=== PATIENT | female | born 1995 | race African-American/Black ===

== ENCOUNTER 2017-05-21 12:41 | Emergency (ER) | payer OTHER, SELFPAY ==
[2017-05-21] MEDS ORDERED: HYDROcodone/Acetaminophen 10/325 mg Tablet ONE (13:45)
== END 2017-05-21 14:54 | disposition home or self-care (01) ==
LOC: ERS 12:41
DX: L02.214 Cutaneous abscess of groin (principal); J45.909 Unspecified asthma, uncomplicated
CPT/HCPCS: 10060

== ENCOUNTER 2017-07-29 20:36 | Emergency (ER) | payer SELFPAY ==
[2017-07-29 21:00] LABS: Pregnancy Test - Urine (BHCG) POSITIVE (Negative); Pregu Control Background? CLEAR/WHITE (CLR/WHITE); Pregu Control Bar Appear? YES (CONTROL BAR)
--- NOTE | 2017-07-30 00:05 | ULT ---
OB ULTRASOUND: Date: 07/29/17 HISTORY: Nausea and vomiting. Bleeding 3 days ago. Unknown dates. FINDINGS: There is a single intrauterine gestation in cephalic presentation. Cardiac Doppler demonstrates heart tones with a heart rate of 150 beats/minute. The placenta is located posteriorly. Lower uterine segment is note well visualized, but the leading edge of the placenta does not appear to exte nd into the lower uterine segment to suggest placenta previa or low-lying placenta. Subjectively, the re is a normal amount of amniotic fluid. The cervical length measures 3.7 cm based on endovaginal imaging. measurements: BPD: 5.7 cm, 23 weeks/3 days HC: 19.75 cm, 22 weeks AC: 18.21 cm, 23 weeks FL: 3.86 cm, 22 weeks/3 days The estimated gestational age by ultrasound is 22 weeks/5 days with an VANESA on 11/27/17. Gestational a ge by the last menstrual period is not provided. The estimated weight by ultrasound is 527 gm (1 lb, 3 oz). The visualized portions of the cerebellum, visualized portions of the spine, four chamber heart , stomach, bilateral kidneys, and decompressed urinary bladder demonstrate a normal CT appearance. Th e cord insertion has a normal sonographic appearance as well. A three vessel cord is not delineated, but there is flow on either side of the urinary bladder suggesting a three vessel cord. No definite f etal anomalies are visualized on this exam. IMPRESSION: 1. Single intrauterine gestation in cephalic presentation with heart tones documented. Estimat ed gestational age by ultrasound is 22 weeks/5 days with an VANESA on 11/27/17. 2. Estimated weight by ultrasound is 527 gm (1 lb, 3 oz). 3. No retroplacental hemorrhage is identified on this exam. Subjectively, there is a normal amount o f amniotic fluid. POS: [facility]
== END 2017-07-30 00:10 | disposition home or self-care (01) ==
LOC: ERS 20:36
DX: O46.92 Antepartum hemorrhage, unspecified, second trimester (principal); O99.512 Diseases of the respiratory system complicating pregnancy, second trimester; J45.909 Unspecified asthma, uncomplicated; Z3A.22 22 weeks gestation of pregnancy
CPT/HCPCS: 36415; 76805; 81025; 84702; 86900; 86901

== ENCOUNTER 2017-10-03 12:18 | Emergency (ER) | payer OTHER, SELFPAY | END 2017-10-03 15:20 | disposition short-term general hospital (02) | LOC: SCSER 12:18 | DX: O99.89 Other specified diseases and conditions complicating pregnancy, childbirth and the puerperium (principal); R10.30 Lower abdominal pain, unspecified; O99.513 Diseases of the respiratory system complicating pregnancy, third trimester; J45.909 Unspecified asthma, uncomplicated; Z3A.30 30 weeks gestation of pregnancy | CPT/HCPCS: 99284 ==

== ENCOUNTER 2017-10-24 17:51 | Inpatient (IN) | payer OTHER ==
[2017-10-24 18:38] VITALS: BMI 32.1
[2017-10-24 18:57] LABS: Amnisure Test RUPTURE DETECTED (No Rupture)
[2017-10-24 18:58] LABS: Amnisure Internal Control QC ACCEPTABLE (ACCEPTABLE)
[2017-10-24] MEDS ORDERED: Ibuprofen 800 MG TAB PO PRN (19:13)
[2017-10-24] MEDS ORDERED: HYDROcodone/Acetaminophen 5/325 mg Tablet PO PRN ×2 (19:13)
[2017-10-24] MEDS ORDERED: Promethazine HCl 25 MG/ML VIAL IM PRN (19:13)
[2017-10-24] MEDS ORDERED: NS / Oxytocin 40 units/1000ml 1,000 ML IV PRN (19:13)
[2017-10-24] MEDS ORDERED: Lidocaine 1% (PF) 30 ML VIAL SC PRN (19:13)
[2017-10-24] MEDS ORDERED: Butorphanol Tartrate 1 MG/ML VIAL SLOW IVP PRN (19:13)
[2017-10-24] MEDS ORDERED: Penicillin G Potassium 5 MILL.UNITS in Sodium Chloride 0.9% 100 ML IVPB SCH (19:15)
--- NOTE | 2017-10-24 19:22 | PDOC.LDHP ---
Labor and Delivery H&P Chief complaint: loss of fluid HPI: 22 yo at 34 weeks 5 days here for possible LOF. Patient of Dr Mac. The patient is otherwise without medical or issues. Amnisure done on arrival was positive for rupture. Good FM. Last child was born at term. States few contractions. Review of Systems: Complete ROS done and negative as per HPI. Current gestational age (weeks): 34 (5 days) Dating criteria: last menstrual period Grav: 2 Para: 1 OB History Details: x 1 Current complications: none Abnormal US findings: No Current medications: pre- vitamins Previous surgical history: none Allergies/Adverse Reactions: Allergies Allergy/AdvReac Type Severity Reaction Status Date / Time No Known Allergies Allergy Verified 10/24/17 18:31 Social history: none - Physical Exam Vital signs reviewed and normal: yes General: NAD Heart: RRR Lungs: CTAB Abdomen: gravid FHT: category 1 [place] contractions every: irregular and few - Vaginal Exam cm dilated: 1 (Sterile spec performed by me: clear fluid in posterior vagina) Effacement: 50% Station: -3 - Assessment L&D Assessment: premature rupture of membranes ( prelabor ROM at 34 weeks) - Plan Plan: admit to L&D, labor augmentation if indicated (cytotec), GBS antibiotic prophylaxis (PCN as ega under 37 weeks), informed consent obtained, other (Sono ordered for EGA; NICU consult obtained for 34 week gestation (D/W Dr Gould) . Sent message to Dr Beach regardind patient arrival, awaiting return call. I discussed in detail the plan of care with the patient and family. EGA and risks of prematurity also addressed (NICU stay, neurological issues, breathing difficulties) by me. I reviewed with them steroids for FLM and use of cytotec to ripen the cervix. I also addressed sono to check presentation and EFW. PCN also discussed for GBS coverage based on EGA. Questions answered in detail.)
[2017-10-24] MEDS: Lactated Ringer's 1,000 ML IV SCH (20:20)
[2017-10-24 20:41] LABS: Mean Corpuscular HGB CONC 34.7 g/dL (32.0-36.0); Mean Corpuscular Hemoglobin 29.2 pg (25.0-35.0); Mean Corpuscular Volume 84.1 fL (78.0-98.0); Mean Platelet Volume 7.3 fL (7.4-10.4); Platelet Count 303 thou/uL (130-400); RBC Distribution Width 12.4 % (11.5-14.5); Red Blood Cell (RBC) Count 3.78 mill/uL (4.00-5.20); White Blood Cell (WBC) Count 10.3 thou/uL (4.8-10.8)
--- NOTE | 2017-10-24 20:50 | PDOC.APC ---
Antepartum Consult KIERRA ELLISON is a 22 year old female at [34 5/7] gestational weeks who presented with premature rupture of membranes. I was asked by Dr. Lucero to speak with the mother regarding anticipated course for a baby born at 34 weeks. I outlined that the timing and mode of delivery is a decision that will be made by the OB service. Once the patient is taken for delivery, the resuscitation team will be present. The initial focus will be on respiratory stabilization and may include minimal assistance, CPAP or intubation with surfactant administration. I discussed that the patient will need to be admitted to the NICU in an isolette due to temperature instability associated with prematurity. We will then obtain IV access (peripheral will be first line, umbilical if unable to obtain peripheral) as babies are at risk for hypoglycemia. We discussed that babies born are at higher risk for feeding intolerance, infection and jaundice. I discussed that breastmilk is the best nutrition for babies and she is strongly encouraged to pump after delivery. Mother does plan to breastfeed. I explained that the duration of hospital stay will be determined on the clinical course of the baby. I outlined the milestones that needed to be achieved to ensure safe discharge home. She had the opportunity to ask questions. I encouraged her to contact our service again if additional questions arise. I spent 20 minutes in consultation with this patient including counseling and coordination of care. Labs: Admission serologies pending: hep B, syphilis Ab, HIV GBS unknown
[2017-10-24] MEDS: Betamet Acet/Betamet Na Ph 30 MG/5 ML VIAL IM SCH (20:52)
[2017-10-24 21:18] LABS: Syphilis Antibody Nonreactive (Nonreactive); Syphilis Antibody Index 0.08 S/CO (<1.00 Non-Reactive)
--- NOTE | 2017-10-24 21:53 | ULT ---
ULTRASOUND OBSTETRICAL COMPLETE: 10/24/17 HISTORY: 22-year-old female with third trimester of , 34 weeks, with premature rupture of membranes. FINDINGS: number: Marr lie: Cephalic Maternal cervix: Poorly visualized. The enterprise systems administrator has measured a structure that she has labeled as the cervix, with a length of 3.3 cm. It is uncertain whether or not this is actually the cervix. Ther e is no amniotic fluid within it. Placenta: Posterior. No placenta previa. Amniotic fluid volume: SALBADOR 10.5 cm. heart rate: 143 bpm The following anatomy is visualized, with no evidence of anomalies: Bladder, bilateral kidneys, three vessel cord, four chamber heart, stomach, and cord insertion. The rest of the anatomy is not visualized in detail. biometry: Head circumference (HC): 30.5 cm 33w 6d Biparietal diameter (BPD): 7.9 cm 31w 6d Abdominal circumference (AC): 30.6 cm 34w 4d Femur length (FL): 6.7 cm 34w 2d Average ultrasound age (AUA): 33w 6d Estimated date of delivery (VANESA): 12/06/17 Last menstrual period (LMP): 02/23/17 Gestational age by LMP: 34w, 5 d. Based on the earlier ultrasound of 07/29/17, the AVNESA should be 11/27/17. Estimated weight (EFW): 2354 g +/- 348 g (5 lb, 3 oz +/- 12 oz). IMPRESSION: 1. Live third trimester intrauterine gestation. 2. Estimated gestational age of 33 weeks, 6 days. 3. Cephalic lie. 4. SALBADOR of 10.5 cm. TATUM Ray POS: [facility]
[2017-10-24] MEDS: Misoprostol 100 MCG TAB VAG SCH (22:05)
--- NOTE | 2017-10-24 22:54 | PDOC.EVN ---
Event Note - Event Note Event Note: Sono note: Verbal report- cephalic, 33 weeks 6 days (S=D), EFW approx 5 LBS.
[2017-10-24 23:40] LABS: HBSAg Index 0.13 S/CO (0-0.99); HIV (1/2) Antibody/Antigen Non-Reactive (NonReactive); HIV 1/2 INDEX 0.07 S/CO (<1.00); Hep B Surf Ag Non-Reactive S/CO (NonReactive)
[2017-10-25] MEDS: Penicillin G 2.5 MILL.units 2.5 MILL.UNITS in Premix Bag 1 BAG IVPB SCH ×4 (01:10→10:56)
[2017-10-25] MEDS: Misoprostol 100 MCG TAB VAG SCH ×2 (01:26→06:57)
[2017-10-25] MEDS: Lactated Ringer's 1,000 ML IV SCH ×2 (03:40→09:30)
--- NOTE | 2017-10-25 08:17 | PDOC.LDPN ---
Labor & Delivery Progress Note - Subjective Subjective: comfortable - Objective Vital signs reviewed and normal: yes General: NAD Uterine fundus: non tender Dilation: 3 Effacement: 90% Station: -1 FHT: category 1 (120s, mod alfredito, +accels, no decels ) [place] contractions every: q2-4 min AROM: clear fluid (AROM or redundant membranes) - Assessment (1) 34 weeks gestation of Code(s): Z3A.34 - 34 WEEKS GESTATION OF Current Visit: Yes Status : Acute (2) premature rupture of membranes Code(s): O42.919 - PRETRM FRANKLIN ROM, UNSP TIME BETW RUPT AND ONST LABR, UNSP TRI Current Visit: Yes Status: Acute -: BMTZ #2 this AM Continue PCN for PPX AROM of redundant membranes. May need pitocin. NICU at delivery
[2017-10-25] MEDS ORDERED: DISCONTINUE ALL PREVIOUS NARCOTICS FS SCH (08:45)
[2017-10-25] MEDS ORDERED: Bupivacaine 0.75% 13.4 ML, fentaNYL Citrate/PF 400 MCG in Sodium Chloride 0.9% 78.6 ML EPIDURAL SCH (08:45)
[2017-10-25] MEDS ORDERED: Naloxone HCl 0.4 mg/ml Vial IV PRN ×2 (08:55)
[2017-10-25] MEDS ORDERED: Ondansetron HCl/PF 4 MG/2 ML Vial IVP PRN ×2 (08:55→12:51)
[2017-10-25] MEDS ORDERED: Promethazine HCl 25 MG/ML VIAL IM PRN (08:55)
[2017-10-25] MEDS ORDERED: Hydrocerin (Eucerin) Cream 120 gm Jar TOP PRN (08:55)
[2017-10-25] MEDS ORDERED: Lactated Ringer's 500 ML IV PRN (08:55)
[2017-10-25] MEDS ORDERED: ePHEDrine/0.9% NaCl/PF SYRINGE 50 mg/10 ml SLOW IVP PRN (08:55)
[2017-10-25] MEDS ORDERED: diphenhydrAMINE 50 MG/ML VIAL IVP PRN (08:55)
[2017-10-25] MEDS ORDERED: Acetaminophen 325 MG TAB PO PRN (08:55)
[2017-10-25] MEDS ORDERED: Lidocaine 1.5% w/Epi 1:200K 30 ML VIAL (Epid Use) ONE (09:22)
--- NOTE | 2017-10-25 11:24 | PDOC.OPDEL ---
OB Operative/Delivery Note Delivery Dr/Surgeon: Debbie Hall DO Pre-Delivery Diagnosis: other (PPROM 34 weeks) Procedure/Post Delivery Dx: spontaneous vaginal delivery Weeks gestation: 34 Anesthesia: epidural - Findings A Sex: male - 1 min: 8 - 5 min: 9 - Additional Findings/Plan Placenta delivered: spontaneous Repaired Obstetrical Laceration: none Estimated blood loss: 100 cc Compilations/Other Findings: in RANJAN position. No complications. Normal appearing placenta Post delivery plan: routine recovery
[2017-10-25] MEDS ORDERED: NS / Oxytocin 40 units/1000ml 1,000 ML IV SCH (12:51)
[2017-10-25] MEDS ORDERED: Preparation H Ointment 28 GM TUBE PR PRN (12:51)
[2017-10-25] MEDS ORDERED: traMADol HCl 50 MG TAB PO PRN (12:51)
[2017-10-25] MEDS ORDERED: Milk Of Magnesia 30 ML UDCUP PO PRN (12:51)
[2017-10-25] MEDS ORDERED: Methylergonovine 0.2 MG/ML VIAL IM PRN (12:51)
[2017-10-25] MEDS ORDERED: Bisacodyl 10 MG SUPP PR PRN (12:51)
[2017-10-25] MEDS ORDERED: Benzocaine/Menthol 20-0.5% 60 ML CAN TOP PRN (12:51)
[2017-10-25] MEDS ORDERED: diphenhydrAMINE 25 MG CAP PO PRN (12:51)
[2017-10-25] MEDS: Betamet Acet/Betamet Na Ph 30 MG/5 ML VIAL IM SCH (13:42)
[2017-10-25] MEDS ORDERED: Lidocaine 2% MPF 10 ML AMP (For Epidural Use) ONE (14:50)
[2017-10-25] MEDS: Ibuprofen 800 MG TAB PO SCH ×2 (15:05→22:00)
[2017-10-25] MEDS: Docusate Calcium (SURFAK) 240 MG CAP PO SCH (22:00)
[2017-10-26 06:05] LABS: Hemoglobin 11.1 g/dL (12.0-16.0); Mean Corpuscular HGB CONC 33.4 g/dL (32.0-36.0); Mean Corpuscular Hemoglobin 28.9 pg (25.0-35.0); Mean Corpuscular Volume 86.6 fL (78.0-98.0); Mean Platelet Volume 7.7 fL (7.4-10.4); Platelet Count 302 thou/uL (130-400); RBC Distribution Width 12.7 % (11.5-14.5); Red Blood Cell (RBC) Count 3.84 mill/uL (4.00-5.20); White Blood Cell (WBC) Count 20.2 thou/uL (4.8-10.8)
[2017-10-26] MEDS: Ibuprofen 800 MG TAB PO SCH ×3 (06:27→22:08)
--- NOTE | 2017-10-26 08:09 | PDOC.PP ---
Post Progress Note Post Day #: 1 Subjective: No concerns today. Trying to breast feed. Minimal lochia and pain. PO intake tolerated: yes Flatus: yes Ambulation: yes Vital Signs (12 hours) Temp Pulse Resp 10/26/17 07:43 98.5 F 62 18 10/26/17 04:00 98.5 F 62 18 10/26/17 00:35 98.2 F 73 18 Weight Weight 193 lb - Physical Examination General: NAD Cardiovascular: RRR Respiratory: non-labored breathing Abdominal: no distention, appropriately TTP Fundus firm & at: below umbillicus Extremities: negative homans (B) Skin: no rash Neurological: no gross focal deficits Psychiatric: A&Ox3, normal affect Result Diagrams: 10/26/17 05:16 Additional Labs: Post Labs Blood Type B POSITIVE 10/24/17 20:22 Hep Bs Antigen Non-Reactive S/CO (NonReactive) 10/24/17 20:22 (1) 34 weeks gestation of Code(s): Z3A.34 - 34 WEEKS GESTATION OF Status: Resolved (2) premature rupture of membranes Code(s): O42.919 - PRETRM [place] ROM, UNSP TIME BETW RUPT AND ONST LABR, UNSP TRI Status: Resolved (3) delivered vaginally, 1,750-1,999 grams, 33-34 completed weeks Code(s): [id number] - Status: Acute - Assessment/Plan PPD1 VSSAF Continue PP care. Plan for d/c after ready for d/c, possibly tomorrow.
[2017-10-26] MEDS: Docusate Calcium (SURFAK) 240 MG CAP PO SCH ×2 (08:35→22:08)
[2017-10-27] MEDS: Ibuprofen 800 MG TAB PO SCH (05:01)
--- NOTE | 2017-10-27 05:37 | PDOC.PP ---
Post Progress Note Post Day #: 2 Subjective: Doing well PO intake tolerated: yes Flatus: yes Ambulation: yes Vital Signs (12 hours) Temp Pulse Resp 10/26/17 20:00 98.0 F 80 20 Weight Weight 193 lb - Physical Examination General: NAD Cardiovascular: no m/r/g Respiratory: clear to auscultation bilaterally Abdominal: + bowel sounds, lochia, no distention Extremities: negative homans (B) Neurological: no gross focal deficits Psychiatric: A&Ox3, normal affect Result Diagrams: 10/26/17 05:16 Additional Labs: Post Labs Blood Type B POSITIVE 10/24/17 20:22 Hep Bs Antigen Non-Reactive S/CO (NonReactive) 10/24/17 20:22 (1) delivered vaginally, 1,750-1,999 grams, 33-34 completed weeks Code(s): [id number] - Status: Acute (2) care and examination Code(s): Z39.2 - ENCOUNTER FOR ROUTINE FOLLOW-UP Status: Acute - Assessment/Plan PPD2, doing well. baby ok for discharge. OK for release. F/U with Dr mace
--- NOTE | 2017-10-27 05:41 | PDOC.EVN ---
Event Note - Event Note Event Note: Discharge Note Admit Date: 10/24/17 Discharge date: 10/27/17 Procedure: vaginal Delivery Other DX: at 34-35 weeks OB Summary completed in record, please see that form. Routine PP care and home on PPD2. baby did well per NICU report.
[2017-10-27 08:30] VITALS: TEMP 98.4
[2017-10-27 08:31] VITALS: BP 96/50
[2017-10-27] MEDS: Docusate Calcium (SURFAK) 240 MG CAP PO SCH (09:25)
== END 2017-10-27 11:45 | disposition home or self-care (01) | DRG 775 ==
LOC: L&D/OP 17:51 → L&D 20:52 → 3SW 10-25 12:13
PROVIDERS: ADMIT Obstetrics & Gynecology; ATTEND Obstetrics & Gynecology
PROC: 3E0P7VZ Introduction of Hormone into Female Reproductive, Via Natural or Artificial Opening (ICD-10-PCS; 2017-10-24)
PROC: 3E033VJ Introduction of Other Hormone into Peripheral Vein, Percutaneous Approach (ICD-10-PCS; 2017-10-24)
PROC: 10E0XZZ Delivery of Products of Conception, External Approach (ICD-10-PCS; principal; 2017-10-25)
DX: O42.013 Preterm premature rupture of membranes, onset of labor within 24 hours of rupture, third trimester (principal); O60.14X0 Preterm labor third trimester with preterm delivery third trimester, not applicable or unspecified; Z3A.34 34 weeks gestation of pregnancy; Z37.0 Single live birth
CPT/HCPCS: 36415; 51702; 76815; 84112; 85027; 86780; 86850; 86900; 86901; 87340; 87389; 88307; 99285; J0702; J2001; J2540; J3010; J7050

== ENCOUNTER 2022-07-03 08:23 | Emergency (ER) | payer BC, SELFPAY ==
[2022-07-03 11:39] LABS: Bilirubin Negative (Negative); Blood, Urine Negative (Negative); Clarity Clear (Clear); Glucose, Urine (Dipstick) Normal (Negative); Ketone, Urine Negative (Negative); Leukocyte 250 Leu/uL (Negative); Nitrite Negative (Negative); Protein, Urine (Dipstick) Negative (Neg-Trace); RBC/HPF 0-3 HPF (0-3); Specific Gravity, Urine 1.016 (1.002-1.036); Urobilinogen Normal mg/dL (Less than 2)
[2022-07-03 11:40] LABS: Bacteria/HPF 1+ HPF (None Seen)
== END 2022-07-03 12:41 | disposition home or self-care (01) ==
LOC: ERS 08:23
DX: N10 Acute pyelonephritis (principal)
CPT/HCPCS: 71046; 81003; 81015